=== PATIENT | female | born 1970 | race Caucasian/White ===

== ENCOUNTER → 2019-11-08 | Emergency (ER) | payer BC, OTHER ==
[~2019-11-08] VITALS: Ht 172.7 cm; Wt 90.7 kg
[2019-11-08 16:48] VITALS: BP 139/51
== END | disposition home or self-care (01) ==
LOC: ER 16:21
DX: R06.02 Shortness of breath (principal); F41.9 Anxiety disorder, unspecified
CPT/HCPCS: 71250; 87070; 87804; 87880